=== PATIENT | male | born 1940 | race Caucasian/White ===

== ENCOUNTER 2020-12-18 07:15 | Inpatient (IN) ==
[2020-12-18] MEDS ORDERED: Ipratropium/Albuterol Neb 3 ML IH ONE (07:25)
[2020-12-18] MEDS ORDERED: Furosemide 40 MG/4 ML VIAL IVP ONE ×3 (07:25→23:00)
[2020-12-18] MEDS ORDERED: Ipratropium/Albuterol Neb 3 ML ONE (07:25)
[2020-12-18 08:44] LABS: Basophils % 0.3 %; Eosinophils # 0.1 K/mcL (0.0-0.6); Eosinophils % 1.9 %; Hematocrit 24.7 % (37.5-50.1); Hemoglobin 7.6 g/dL (12.9-16.9); Immature Granulocytes % 0.6 % (0-4); Lymphocytes # 1.1 K/mcL (0.6-4.6); Lymphocytes % 16.1 %; Mean Corpuscular HGB Conc 30.8 g/dL (31.6-35.5); Mean Corpuscular Hemoglobin 29.8 pg (28.0-33.3); Mean Corpuscular Volume 96.9 fL (83.0-100.0); Mean Platelet Volume 8.7 fL (9.4-12.4); Monocytes # 0.7 K/mcL (0.0-1.3); Monocytes % 9.7 %; Neutrophils # 4.9 K/mcL (1.6-8.9); Platelet Count 115 K/mcL (140-400); Red Blood Count 2.55 M/mcL (4.19-5.50); Segmented Neutrophils % 71.4 %; White Blood Count 6.9 K/mcL (4.3-11.1)
[2020-12-18 08:48] LABS: VBG HCO3 16 mEq/L (21-27); VBG PCO2 35 mmHg (41-51); VBG PH 7.26 pH Units (7.32-7.42); VBG PO2 54 mmHg (25-50)
[2020-12-18 09:35] LABS: Albumin 3.2 g/dL (3.5-5.7); Albumin/Globulin Ratio 1.2 (1.1-2.2); Bilirubin,Indirect 0.3 mg/dL (0.0-1.0); Bilirubin,Total 0.3 mg/dL (0.3-1.0); Globulin 2.7 g/dL (2.4-3.5); Magnesium 1.4 mg/dL (1.6-2.6); Potassium 5.4 mEq/L (3.5-5.1); Total Protein 5.9 g/dL (6.4-8.9); Troponin I 0.61 ng/mL (< 0.04)
[2020-12-18] MEDS ORDERED: Naloxone 0.4 MG/ML INJ IVP PRN (09:48)
[2020-12-18 10:17] LABS: Phosphorous 6.2 mg/dL (2.7-4.5)
[2020-12-18 10:47] LABS: Bacteria,Urine Few per hpf (None-Few); Bilirubin,Urine Negative (Negative); Blood,Urine Trace (Negative); Clarity,Urine Clear (Clear); Color,Urine Colorless (Yellow); Glucose,Urine (UA) 300 mg/dL (Normal); Ketones,Urine Negative (Negative); Leukocyte Esterase,Urine Negative (Negative); Nitrite,Urine Negative (Negative); PH,Urine 6.5 pH Units (5.0-8.0); Protein,Urine >=300 mg/dL (Neg-Trace); RBC,Urine 0-3 per hpf (0-3); Specific Gravity,Urine 1.014 (1.010-1.025); Squamous Epithelial Cell,Urine Few per hpf (None-Few); Urobilinogen,Urine Normal (Normal); WBC,Urine 0-3 per hpf (0-3)
[2020-12-18] MEDS ORDERED: *HR* Heparin 5,000 UNIT/ML VIAL IVP ONE (14:35)
[2020-12-18] MEDS ORDERED: *HR* Heparin 5,000 UNIT/ML VIAL IVP PRN ×2 (14:35)
[2020-12-18] MEDS ORDERED: Heparin 25,000UNIT/250ML 1/2NS 25,000 UNIT/250 ML IV.SOLN IVC SCH (14:45)
[2020-12-18] MEDS ORDERED: Perflutren Lipid Microsphere 1.3 ML in 0.9 % Sodium Chloride 8.7 ML IVP PRN (14:56)
[2020-12-18] MEDS ORDERED: D5% in Water 1,000 ML IVC PRN (16:29)
[2020-12-18] MEDS ORDERED: Dextrose Gel 15 GM/37.5 ML TUBE PO PRN ×2 (16:29)
[2020-12-18] MEDS ORDERED: *HR* Dextrose 50 % in Water (Vial) 50 ML VIAL IVP PRN (16:29)
[2020-12-18] MEDS: Albumin 25% 25gram/100mL 25 GM/100 ML IV.SOLN IVC SCH ×2 (16:46→20:53)
[2020-12-18] MEDS: carvediloL 6.25 MG TABLET PO SCH (17:11)
[2020-12-18] MEDS: Insulin LISPRO 300 UNITS/3 ML VIAL SUBQ SCH (17:12)
[2020-12-18 18:05] LABS: Hematocrit 23.3 % (37.5-50.1); Hemoglobin 7.3 g/dL (12.9-16.9)
[2020-12-18] MEDS: Gabapentin 100 MG CAPSULE PO SCH (20:36)
[2020-12-18] MEDS ORDERED: Insulin LISPRO 300 UNITS/3 ML VIAL SUBQ SCH (21:00)
[2020-12-19 00:51] LABS: Albumin 3.5 g/dL (3.5-5.7); Albumin/Globulin Ratio 1.5 (1.1-2.2); Bilirubin,Total 0.5 mg/dL (0.3-1.0); Globulin 2.3 g/dL (2.4-3.5); Potassium 4.7 mEq/L (3.5-5.1); Total Protein 5.8 g/dL (6.4-8.9)
[2020-12-19 00:52] LABS: INR 1.2; Prothrombin Time 14.1 Seconds (9.4-12.1)
[2020-12-19 01:02] LABS: Hematocrit 21.2 % (37.5-50.1); Hemoglobin 6.9 g/dL (12.9-16.9)
[2020-12-19] MEDS ORDERED: 0.9 % Sodium Chloride 250 ML IVC PRN (07:26)
[2020-12-19] MEDS ORDERED: 0.9 % Sodium Chloride 1,000 ML PRIME SCH (07:30)
[2020-12-19] MEDS ORDERED: Heparin 1,000 UNITS/500 mL 500 ML ONE ×2 (07:45→12:34)
[2020-12-19] MEDS ORDERED: 0.9 % Sodium Chloride 500 ML ONE (07:47)
[2020-12-19] MEDS ORDERED: amLODIPine 5 MG TABLET PO SCH (09:00)
[2020-12-19] MEDS ORDERED: Isosorbide MONOnitrate (24 HR) 60 MG TAB.ER.24H PO SCH (09:00)
[2020-12-19] MEDS: Insulin LISPRO 300 UNITS/3 ML VIAL SUBQ SCH ×5 (09:59→21:33)
[2020-12-19] MEDS: Magnesium Oxide 400 MG TABLET PO SCH (10:08)
[2020-12-19] MEDS: Isosorbide MONOnitrate (24 HR) 60 MG TAB.ER.24H PO SCH (10:08)
[2020-12-19] MEDS: Aspirin Enteric Coated 81 MG Tablet PO SCH (10:08)
[2020-12-19] MEDS: Furosemide 40 MG/4 ML VIAL IVP SCH (10:08)
[2020-12-19] MEDS: Multivit/Ca/Min/Fe/FA 1 TAB TABLET PO SCH (10:09)
[2020-12-19] MEDS: Gabapentin 100 MG CAPSULE PO SCH ×2 (10:10→21:35)
[2020-12-19] MEDS: carvediloL 6.25 MG TABLET PO SCH ×2 (10:10→17:15)
[2020-12-19 11:15] LABS: Hepatitis B Surface Antibody < 3.10 mIU/mL
[2020-12-19 11:26] LABS: Hepatitis B Surface Antigen Nonreactive (Nonreactive)
[2020-12-19] MEDS ORDERED: Lidocaine/EPI 1:100k 1% 50 ML VIAL ONE (12:34)
[2020-12-19] MEDS ORDERED: amLODIPine 5 MG TABLET PO ONE (12:34)
[2020-12-19] MEDS ORDERED: carvediloL 6.25 MG TABLET PO ONE (13:15)
[2020-12-19] MEDS ORDERED: *HR* Heparin 5,000 UNIT/ML VIAL ONE ×2 (13:17→13:27)
[2020-12-19] MEDS ORDERED: SODIUM CHLORIDE/NAHCO3/KCL/PEG 4,000 ML SOLN.RECON PO ONE (17:00)
[2020-12-19] MEDS ORDERED: ROSUVASTATIN CALCIUM 20 MG PO SCH (18:00)
[2020-12-20] MEDS ORDERED: Insulin LISPRO 300 UNITS/3 ML VIAL SUBQ SCH
[2020-12-20 01:12] LABS: Hematocrit 26.8 % (37.5-50.1); Hemoglobin 8.6 g/dL (12.9-16.9)
[2020-12-20 01:26] LABS: Calcium 7.9 mg/dL (8.6-10.3)
[2020-12-20] MEDS ORDERED: 0.9 % Sodium Chloride 250 ML IVC PRN (07:16)
[2020-12-20] MEDS: Multivit/Ca/Min/Fe/FA 1 TAB TABLET PO SCH (07:28)
[2020-12-20] MEDS: Isosorbide MONOnitrate (24 HR) 60 MG TAB.ER.24H PO SCH (07:29)
[2020-12-20] MEDS: Aspirin Enteric Coated 81 MG Tablet PO SCH (07:30)
[2020-12-20] MEDS: carvediloL 6.25 MG TABLET PO SCH ×2 (07:30→16:58)
[2020-12-20] MEDS: Magnesium Oxide 400 MG TABLET PO SCH (07:30)
[2020-12-20] MEDS: Furosemide 40 MG/4 ML VIAL IVP SCH (07:31)
[2020-12-20] MEDS: amLODIPine 5 MG TABLET PO SCH (07:31)
[2020-12-20] MEDS: Insulin LISPRO 300 UNITS/3 ML VIAL SUBQ SCH ×5 (07:50→23:58)
[2020-12-20] MEDS: hydrALAZINE 25 MG TABLET PO SCH ×3 (09:33→23:09)
[2020-12-20] MEDS ORDERED: *HR* Heparin 10,000 UNIT/10 ML VIAL IV PRN (10:42)
[2020-12-20] MEDS: Gabapentin 100 MG CAPSULE PO SCH (19:52)
[2020-12-21 01:59] LABS: Immature Granulocytes % 0.2 % (0-4); Red Cell Distribution Width 15.9 % (11.5-14.5)
[2020-12-21 02:01] LABS: Basophils % 0.2 %; Eosinophils # 0.2 K/mcL (0.0-0.6); Eosinophils % 3.8 %; Hemoglobin 8.6 g/dL (12.9-16.9); Immature Platelets 1.5 % (1.1-6.1); Lymphocytes # 1.3 K/mcL (0.6-4.6); Lymphocytes % 23.6 %; Mean Corpuscular HGB Conc 31.9 g/dL (31.6-35.5); Mean Corpuscular Hemoglobin 29.1 pg (28.0-33.3); Mean Corpuscular Volume 91.2 fL (83.0-100.0); Mean Platelet Volume 9.5 fL (9.4-12.4); Monocytes # 1.1 K/mcL (0.0-1.3); Monocytes % 20.3 %; Red Blood Count 2.96 M/mcL (4.19-5.50); Segmented Neutrophils % 51.9 %; White Blood Count 5.5 K/mcL (4.3-11.1)
[2020-12-21 02:09] LABS: Neutrophils # 2.9 K/mcL (1.6-8.9); Platelet Count 97 K/mcL (140-400)
[2020-12-21 02:19] LABS: Calcium 7.9 mg/dL (8.6-10.3)
[2020-12-21] MEDS: Insulin LISPRO 300 UNITS/3 ML VIAL SUBQ SCH ×5 (05:51→19:52)
[2020-12-21] MEDS ORDERED: 0.9 % Sodium Chloride 250 ML IVC PRN (06:49)
[2020-12-21] MEDS: Gabapentin 100 MG CAPSULE PO SCH ×2 (08:08→19:56)
[2020-12-21] MEDS: Multivit/Ca/Min/Fe/FA 1 TAB TABLET PO SCH (11:43)
[2020-12-21] MEDS: Aspirin Enteric Coated 81 MG Tablet PO SCH (11:43)
[2020-12-21] MEDS: Isosorbide MONOnitrate (24 HR) 60 MG TAB.ER.24H PO SCH (11:43)
[2020-12-21] MEDS: Magnesium Oxide 400 MG TABLET PO SCH (11:43)
[2020-12-21] MEDS: carvediloL 6.25 MG TABLET PO SCH ×2 (11:49→17:45)
[2020-12-21] MEDS: amLODIPine 5 MG TABLET PO SCH (11:50)
[2020-12-21] MEDS: hydrALAZINE 25 MG TABLET PO SCH ×2 (11:50→17:45)
[2020-12-21] MEDS: Furosemide 40 MG/4 ML VIAL IVP SCH (11:54)
[2020-12-21] MEDS ORDERED: Nitroglycerin 0.4 MG TAB.SUBL SL PRN (15:38)
[2020-12-21] MEDS ORDERED: Morphine Sulfate 2 MG/ML SYRINGE IVP ONE (15:39)
[2020-12-21] MEDS ORDERED: *HR* Heparin 5,000 UNIT/ML VIAL IVP ONE (15:39)
[2020-12-21] MEDS ORDERED: *HR* Heparin 5,000 UNIT/ML VIAL IVP PRN ×2 (15:39)
[2020-12-21] MEDS ORDERED: Insulin Human Regular 10 UNIT in 0.9 % Sodium Chloride 10 ML IV ONE (16:15)
[2020-12-21] MEDS: Heparin 25,000UNIT/250ML 1/2NS 25,000 UNIT/250 ML IV.SOLN IVC SCH (17:02)
[2020-12-21 17:28] LABS: Heparin anti-factor XA UFH < 0.04 IU/mL (0.30-0.70)
[2020-12-21 17:29] LABS: INR 1.2; Prothrombin Time 14.1 Seconds (9.4-12.1)
[2020-12-21] MEDS: Insulin DETEMIR 100 UNIT/ML X5UNITS SUBQ SCH (19:58)
[2020-12-22] MEDS: hydrALAZINE 25 MG TABLET PO SCH ×2 (05:57→18:00)
[2020-12-22] MEDS: Acetaminophen 325 MG TABLET PO PRN ×3 (06:20→23:15)
[2020-12-22] MEDS: Multivit/Ca/Min/Fe/FA 1 TAB TABLET PO SCH (07:48)
[2020-12-22] MEDS: Aspirin Enteric Coated 81 MG Tablet PO SCH (07:49)
[2020-12-22] MEDS: Magnesium Oxide 400 MG TABLET PO SCH (07:49)
[2020-12-22] MEDS: Isosorbide MONOnitrate (24 HR) 60 MG TAB.ER.24H PO SCH (07:49)
[2020-12-22] MEDS: amLODIPine 5 MG TABLET PO SCH (07:50)
[2020-12-22] MEDS: carvediloL 6.25 MG TABLET PO SCH ×2 (07:51→16:10)
[2020-12-22] MEDS: Furosemide 40 MG/4 ML VIAL IVP SCH (07:51)
[2020-12-22] MEDS: Insulin LISPRO 300 UNITS/3 ML VIAL SUBQ SCH ×4 (07:53→20:20)
[2020-12-22 08:42] LABS: Calcium 7.9 mg/dL (8.6-10.3); Potassium 4.1 mEq/L (3.5-5.1)
[2020-12-22 10:16] LABS: Basophils % 0.4 %; Eosinophils # 0.2 K/mcL (0.0-0.6); Eosinophils % 3.7 %; Hematocrit 29.7 % (37.5-50.1); Hemoglobin 9.4 g/dL (12.9-16.9); Immature Granulocytes % 0.4 % (0-4); Lymphocytes # 1.4 K/mcL (0.6-4.6); Lymphocytes % 23.9 %; Mean Corpuscular HGB Conc 31.6 g/dL (31.6-35.5); Mean Corpuscular Hemoglobin 29.3 pg (28.0-33.3); Mean Corpuscular Volume 92.5 fL (83.0-100.0); Mean Platelet Volume 9.6 fL (9.4-12.4); Monocytes # 0.9 K/mcL (0.0-1.3); Monocytes % 15.5 %; Neutrophils # 3.2 K/mcL (1.6-8.9); Platelet Count 102 K/mcL (140-400); Red Blood Count 3.21 M/mcL (4.19-5.50); Red Cell Distribution Width 15.4 % (11.5-14.5); Segmented Neutrophils % 56.1 %; White Blood Count 5.7 K/mcL (4.3-11.1)
[2020-12-22] MEDS ORDERED: Acetaminophen 325 MG TABLET PO SCH (12:00)
[2020-12-22] MEDS: Gabapentin 100 MG CAPSULE PO SCH (20:19)
[2020-12-22] MEDS: Insulin DETEMIR 100 UNIT/ML X5UNITS SUBQ SCH (20:22)
[2020-12-22] MEDS: Heparin 25,000UNIT/250ML 1/2NS 25,000 UNIT/250 ML IV.SOLN IVC SCH (20:26)
[2020-12-23 03:18] LABS: Hemoglobin 8.5 g/dL (12.9-16.9); Mean Corpuscular HGB Conc 31.5 g/dL (31.6-35.5); Mean Corpuscular Hemoglobin 28.4 pg (28.0-33.3); Mean Corpuscular Volume 90.3 fL (83.0-100.0); Mean Platelet Volume 9.2 fL (9.4-12.4); Platelet Count 102 K/mcL (140-400); Red Blood Count 2.99 M/mcL (4.19-5.50); Red Cell Distribution Width 14.9 % (11.5-14.5); White Blood Count 6.2 K/mcL (4.3-11.1)
[2020-12-23 03:37] LABS: Potassium 4.5 mEq/L (3.5-5.1)
[2020-12-23] MEDS: hydrALAZINE 25 MG TABLET PO SCH ×2 (05:33→18:04)
[2020-12-23] MEDS: Acetaminophen 325 MG TABLET PO PRN ×3 (06:29→22:03)
[2020-12-23] MEDS: Isosorbide MONOnitrate (24 HR) 60 MG TAB.ER.24H PO SCH (08:07)
[2020-12-23] MEDS: amLODIPine 5 MG TABLET PO SCH (08:07)
[2020-12-23] MEDS: Multivit/Ca/Min/Fe/FA 1 TAB TABLET PO SCH (08:07)
[2020-12-23] MEDS: Magnesium Oxide 400 MG TABLET PO SCH (08:07)
[2020-12-23] MEDS: carvediloL 6.25 MG TABLET PO SCH ×2 (08:08→18:03)
[2020-12-23] MEDS: Furosemide 40 MG/4 ML VIAL IVP SCH (08:08)
[2020-12-23] MEDS: Aspirin Enteric Coated 81 MG Tablet PO SCH (08:08)
[2020-12-23] MEDS: Insulin LISPRO 300 UNITS/3 ML VIAL SUBQ SCH ×4 (08:09→22:33)
[2020-12-23] MEDS: Heparin 25,000UNIT/250ML 1/2NS 25,000 UNIT/250 ML IV.SOLN IVC SCH (18:04)
[2020-12-23] MEDS: Gabapentin 100 MG CAPSULE PO SCH (22:02)
[2020-12-23] MEDS: Insulin DETEMIR 100 UNIT/ML X5UNITS SUBQ SCH (22:32)
[2020-12-24] MEDS: Heparin 25,000UNIT/250ML 1/2NS 25,000 UNIT/250 ML IV.SOLN IVC SCH (04:09)
[2020-12-24] MEDS: hydrALAZINE 25 MG TABLET PO SCH ×2 (05:51→18:18)
[2020-12-24] MEDS ORDERED: 0.9 % Sodium Chloride 250 ML IVC PRN (07:38)
[2020-12-24] MEDS ORDERED: *HR* Heparin 10,000 UNIT/10 ML VIAL IV PRN (07:38)
[2020-12-24 07:44] LABS: Hematocrit 29.9 % (37.5-50.1); Hemoglobin 9.2 g/dL (12.9-16.9); Mean Corpuscular HGB Conc 30.8 g/dL (31.6-35.5); Mean Corpuscular Hemoglobin 28.6 pg (28.0-33.3); Mean Corpuscular Volume 92.9 fL (83.0-100.0); Mean Platelet Volume 9.1 fL (9.4-12.4); Platelet Count 133 K/mcL (140-400); Red Blood Count 3.22 M/mcL (4.19-5.50); Red Cell Distribution Width 15.2 % (11.5-14.5); White Blood Count 5.6 K/mcL (4.3-11.1)
[2020-12-24] MEDS ORDERED: 0.9 % Sodium Chloride 1,000 ML PRIME SCH (07:45)
[2020-12-24] MEDS: Insulin LISPRO 300 UNITS/3 ML VIAL SUBQ SCH ×5 (07:53→23:01)
[2020-12-24] MEDS: Furosemide 40 MG/4 ML VIAL IVP SCH (07:53)
[2020-12-24] MEDS: Magnesium Oxide 400 MG TABLET PO SCH (07:54)
[2020-12-24] MEDS: Multivit/Ca/Min/Fe/FA 1 TAB TABLET PO SCH (07:54)
[2020-12-24] MEDS: Aspirin Enteric Coated 81 MG Tablet PO SCH (07:54)
[2020-12-24] MEDS: Isosorbide MONOnitrate (24 HR) 60 MG TAB.ER.24H PO SCH (07:54)
[2020-12-24] MEDS: Acetaminophen 325 MG TABLET PO PRN ×2 (07:56→19:37)
[2020-12-24] MEDS: carvediloL 6.25 MG TABLET PO SCH ×2 (07:56→17:38)
[2020-12-24] MEDS: amLODIPine 5 MG TABLET PO SCH (07:57)
[2020-12-24 08:12] LABS: Calcium 8.6 mg/dL (8.6-10.3); Potassium 4.8 mEq/L (3.5-5.1)
[2020-12-24] MEDS: Gabapentin 100 MG CAPSULE PO SCH (19:37)
[2020-12-24] MEDS: Insulin DETEMIR 100 UNIT/ML X5UNITS SUBQ SCH (23:00)
[2020-12-25] MEDS: hydrALAZINE 25 MG TABLET PO SCH ×2 (07:03→16:58)
[2020-12-25] MEDS: Acetaminophen 325 MG TABLET PO PRN (07:03)
[2020-12-25 07:51] LABS: Hematocrit 29.1 % (37.5-50.1); Hemoglobin 9.5 g/dL (12.9-16.9); Mean Corpuscular HGB Conc 32.6 g/dL (31.6-35.5); Mean Corpuscular Hemoglobin 29.8 pg (28.0-33.3); Mean Corpuscular Volume 91.2 fL (83.0-100.0); Mean Platelet Volume 9.1 fL (9.4-12.4); Platelet Count 144 K/mcL (140-400); Red Blood Count 3.19 M/mcL (4.19-5.50); Red Cell Distribution Width 15.3 % (11.5-14.5); White Blood Count 6.5 K/mcL (4.3-11.1)
[2020-12-25] MEDS: Isosorbide MONOnitrate (24 HR) 60 MG TAB.ER.24H PO SCH (07:57)
[2020-12-25] MEDS: Aspirin Enteric Coated 81 MG Tablet PO SCH (07:57)
[2020-12-25] MEDS: carvediloL 6.25 MG TABLET PO SCH ×2 (07:58→16:58)
[2020-12-25] MEDS: Multivit/Ca/Min/Fe/FA 1 TAB TABLET PO SCH (07:58)
[2020-12-25] MEDS: Magnesium Oxide 400 MG TABLET PO SCH (07:58)
[2020-12-25] MEDS: amLODIPine 5 MG TABLET PO SCH (07:59)
[2020-12-25] MEDS: Furosemide 40 MG/4 ML VIAL IVP SCH (08:00)
[2020-12-25 08:09] LABS: Calcium 8.8 mg/dL (8.6-10.3); Potassium 4.8 mEq/L (3.5-5.1)
[2020-12-25] MEDS: Insulin LISPRO 300 UNITS/3 ML VIAL SUBQ SCH ×4 (08:42→20:46)
[2020-12-25] MEDS ORDERED: *HR* Midazolam HCl 2 MG/2 ML VIAL IVP ONE (12:54)
[2020-12-25] MEDS ORDERED: *HR* FentaNYL (PF) 100 MCG/2 ML VIAL IVP ONE (12:54)
[2020-12-25] MEDS ORDERED: 0.9 % Sodium Chloride 500 ML ONE (13:17)
[2020-12-25] MEDS ORDERED: *HR* Heparin 5,000 UNIT/ML VIAL ONE (13:18)
[2020-12-25] MEDS ORDERED: Heparin 1,000 UNITS/500 mL 500 ML ONE (13:20)
[2020-12-25] MEDS ORDERED: Lidocaine/EPI 1:100k 1% 50 ML VIAL ONE (13:20)
[2020-12-25] MEDS ORDERED: CeFAZolin 2,000MG/50ML DUPLEX 2,000 MG/50 ML BAG IVPB ONE (13:32)
[2020-12-25] MEDS: Gabapentin 100 MG CAPSULE PO SCH (20:25)
[2020-12-25] MEDS: Insulin DETEMIR 100 UNIT/ML X5UNITS SUBQ SCH (20:48)
[2020-12-26 06:07] LABS: Hematocrit 29.3 % (37.5-50.1); Hemoglobin 9.1 g/dL (12.9-16.9); Mean Corpuscular HGB Conc 31.1 g/dL (31.6-35.5); Mean Corpuscular Hemoglobin 28.8 pg (28.0-33.3); Mean Corpuscular Volume 92.7 fL (83.0-100.0); Mean Platelet Volume 8.8 fL (9.4-12.4); Platelet Count 156 K/mcL (140-400); Red Blood Count 3.16 M/mcL (4.19-5.50); Red Cell Distribution Width 15.2 % (11.5-14.5); White Blood Count 6.5 K/mcL (4.3-11.1)
[2020-12-26 06:45] LABS: Calcium 8.5 mg/dL (8.6-10.3); Potassium 4.7 mEq/L (3.5-5.1)
[2020-12-26] MEDS: Insulin LISPRO 300 UNITS/3 ML VIAL SUBQ SCH ×4 (07:07→20:25)
[2020-12-26] MEDS ORDERED: *HR* Heparin 10,000 UNIT/10 ML VIAL IV PRN (07:13)
[2020-12-26] MEDS ORDERED: 0.9 % Sodium Chloride 250 ML IVC PRN (07:13)
[2020-12-26] MEDS: hydrALAZINE 25 MG TABLET PO SCH ×2 (07:18→18:39)
[2020-12-26] MEDS: carvediloL 6.25 MG TABLET PO SCH ×2 (07:19→18:40)
[2020-12-26] MEDS: amLODIPine 5 MG TABLET PO SCH (08:44)
[2020-12-26] MEDS: Furosemide 40 MG/4 ML VIAL IVP SCH (08:44)
[2020-12-26] MEDS: Multivit/Ca/Min/Fe/FA 1 TAB TABLET PO SCH (08:44)
[2020-12-26] MEDS: Aspirin Enteric Coated 81 MG Tablet PO SCH (08:44)
[2020-12-26] MEDS: Magnesium Oxide 400 MG TABLET PO SCH (08:44)
[2020-12-26] MEDS: Isosorbide MONOnitrate (24 HR) 60 MG TAB.ER.24H PO SCH (08:56)
[2020-12-26] MEDS: Acetaminophen 325 MG TABLET PO PRN ×2 (10:25→18:39)
[2020-12-26] MEDS ORDERED: *HR* Heparin 10,000 UNIT/10 ML VIAL ONE (12:36)
[2020-12-26] MEDS ORDERED: 0.9 % Sodium Chloride 1,000 ML ONE ×2 (12:36)
[2020-12-26] MEDS ORDERED: Nitroglycerin 1,000 MCG/5 ML VIAL IV ONE (12:36)
[2020-12-26] MEDS ORDERED: *HR* FentaNYL (PF) 100 MCG/2 ML VIAL ONE (13:22)
[2020-12-26] MEDS ORDERED: *HR* Midazolam HCl 2 MG/2 ML VIAL ONE (13:22)
[2020-12-26] MEDS ORDERED: Tirofiban 12.5 MG/250ML 12.5 MG/250 ML BAG ONE (13:46)
[2020-12-26] MEDS ORDERED: Tirofiban 12.5 MG/250ML 12.5 MG/250 ML BAG IVC SCH (14:30)
[2020-12-26] MEDS: Insulin DETEMIR 100 UNIT/ML X5UNITS SUBQ SCH (19:58)
[2020-12-26] MEDS ORDERED: Gabapentin 100 MG CAPSULE PO SCH (21:00)
[2020-12-27 05:31] LABS: Hematocrit 29.7 % (37.5-50.1); Hemoglobin 9.4 g/dL (12.9-16.9); Mean Corpuscular HGB Conc 31.6 g/dL (31.6-35.5); Mean Corpuscular Volume 91.7 fL (83.0-100.0); Platelet Count 179 K/mcL (140-400); Red Blood Count 3.24 M/mcL (4.19-5.50); Red Cell Distribution Width 15.1 % (11.5-14.5); White Blood Count 5.6 K/mcL (4.3-11.1)
[2020-12-27 05:40] LABS: Calcium 8.5 mg/dL (8.6-10.3); Potassium 4.5 mEq/L (3.5-5.1)
[2020-12-27] MEDS: hydrALAZINE 25 MG TABLET PO SCH (06:07)
[2020-12-27] MEDS: Insulin LISPRO 300 UNITS/3 ML VIAL SUBQ SCH ×2 (07:25→12:05)
[2020-12-27] MEDS: Isosorbide MONOnitrate (24 HR) 60 MG TAB.ER.24H PO SCH (07:45)
[2020-12-27] MEDS: Aspirin Enteric Coated 81 MG Tablet PO SCH (07:45)
[2020-12-27] MEDS: Multivit/Ca/Min/Fe/FA 1 TAB TABLET PO SCH (07:45)
[2020-12-27] MEDS: carvediloL 6.25 MG TABLET PO SCH (07:46)
[2020-12-27] MEDS: amLODIPine 5 MG TABLET PO SCH (07:46)
[2020-12-27] MEDS: Magnesium Oxide 400 MG TABLET PO SCH (07:47)
[2020-12-27] MEDS: Furosemide 40 MG/4 ML VIAL IVP SCH (07:48)
[2020-12-27 11:30] VITALS: BP 107/72; PULSE 69; TEMP 98; O2SAT 96
[2020-12-28] MEDS ORDERED: Gabapentin 100 MG CAPSULE PO SCH (21:00)
== END 2020-12-27 14:25 | disposition home health service (06) | DRG 673 ==
LOC: EMEROOARM 07:15 → 2NENU 10:39 → SUATTDRO 10:39 → 2NENU 11:14
PROVIDERS: ADMIT Internal Medicine; ATTEND Internal Medicine
PROC: IRPERMA (2020-12-19 12:00)

== ENCOUNTER 2021-06-15 08:32 | Observation (INO) ==
[2021-06-15 09:04] LABS: Immature Granulocytes % 0.5 % (0-4)
[2021-06-15 09:06] LABS: Basophils % 0.4 %; Eosinophils # 0.1 K/mcL (0.0-0.6); Eosinophils % 0.8 %; Hematocrit 36.2 % (37.5-50.1); Hemoglobin 11.4 g/dL (12.9-16.9); Immature Platelets 1.6 % (1.1-6.1); Lymphocytes # 1.6 K/mcL (0.6-4.6); Lymphocytes % 15.4 %; Mean Corpuscular HGB Conc 31.5 g/dL (31.6-35.5); Mean Corpuscular Hemoglobin 30.2 pg (28.0-33.3); Mean Platelet Volume 8.7 fL (9.4-12.4); Monocytes # 1.3 K/mcL (0.0-1.3); Monocytes % 11.9 %; Neutrophils # 7.5 K/mcL (1.6-8.9); Platelet Count 110 K/mcL (140-400); Red Blood Count 3.77 M/mcL (4.19-5.50); Red Cell Distribution Width 15.8 % (11.5-14.5); White Blood Count 10.6 K/mcL (4.3-11.1)
[2021-06-15 09:28] LABS: Calcium 8.4 mg/dL (8.6-10.3); Potassium 4.1 mEq/L (3.5-5.1); Troponin I 0.06 ng/mL (< 0.04)
[2021-06-15 10:17] LABS: INR 1.2; Prothrombin Time 13.2 Seconds (9.4-12.1)
[2021-06-15 10:19] LABS: Activated Partial Thrombo Time 43.3 Seconds (26.0-36.0)
[2021-06-15 10:36] LABS: Adenovirus Not Detected (Not Detect); Bordetella Pertussis Not Detected (Not Detect); Chlamydophila pneumoniae Not Detected (Not Detect); Coronavirus 229E Not Detected (Not Detect); Coronavirus HKU1 Not Detected (Not Detect); Coronavirus NL63 Not Detected (Not Detect); Coronavirus OC43 Not Detected (Not Detect); Human Metapneumovirus Not Detected (Not Detect); Human Rhinovirus/Enterovirus Not Detected (Not Detect); Influenza A Subtype 2009 H1 Not Detected (Not Detect); Influenza B Not Detected (Not Detect); Mycoplasma pneumoniae Not Detected (Not Detect); Parainfluenza Virus 1 Not Detected (Not Detect); Parainfluenza Virus 2 Not Detected (Not Detect); Parainfluenza Virus 3 Not Detected (Not Detect); Parainfluenza Virus 4 Not Detected (Not Detect); Respiratory Syncytial Virus Not Detected (Not Detect); SARS-CoV-2 Not Detected (Not Detect)
[2021-06-15] MEDS ORDERED: Furosemide 20 MG/2 ML VIAL IVP ONE (11:23)
[2021-06-15] MEDS ORDERED: Isovue-370 500 ML BOTTLE IVP ONE (11:41)
[2021-06-15 12:32] LABS: Bilirubin,Urine Negative (Negative); Blood,Urine Trace (Negative); Clarity,Urine Clear (Clear); Color,Urine Yellow (Yellow); Glucose,Urine (UA) 70 mg/dL (Normal); Ketones,Urine Negative (Negative); Leukocyte Esterase,Urine Negative (Negative); Nitrite,Urine Negative (Negative); Protein,Urine >=600 mg/dL (Neg-Trace); Specific Gravity,Urine 1.018 (1.010-1.025); Urobilinogen,Urine Normal (Normal); WBC,Urine 0-3 per hpf (0-3)
[2021-06-15] MEDS ORDERED: Naloxone 0.4 MG/ML INJ IVP PRN (13:20)
[2021-06-15] MEDS ORDERED: Acetaminophen 325 MG TABLET PO PRN (13:28)
[2021-06-15] MEDS ORDERED: Ondansetron 4 MG/2 ML VIAL IVP PRN (13:28)
[2021-06-15] MEDS ORDERED: *HR* Dextrose 50 % in Water (Syg) 50 ML SYRINGE IVP PRN (13:58)
[2021-06-15] MEDS ORDERED: Dextrose Gel 15 GM/37.5 ML TUBE PO PRN ×2 (13:58)
[2021-06-15] MEDS ORDERED: D5% in Water 1,000 ML IVC PRN (13:58)
[2021-06-15] MEDS: levoFLOXacin 500 MG/100 ML 500 MG/100 ML BAG IVPB SCH (15:18)
[2021-06-15] MEDS ORDERED: Nitroglycerin 0.4 MG TAB.SUBL SL PRN (15:34)
[2021-06-15] MEDS: amLODIPine 5 MG TABLET PO SCH (16:31)
[2021-06-15] MEDS: carvediloL 6.25 MG TABLET PO SCH (16:31)
[2021-06-15] MEDS: Insulin LISPRO 300 UNITS/3 ML VIAL SUBQ SCH ×2 (16:31→20:22)
[2021-06-15] MEDS: hydrALAZINE 25 MG TABLET PO SCH (16:37)
[2021-06-15] MEDS: Gabapentin 100 MG CAPSULE PO SCH (20:21)
[2021-06-15] MEDS: *HR* Heparin 5,000 UNIT/ML VIAL SQ SCH (20:22)
[2021-06-15] MEDS ORDERED: traZODone 50 MG TABLET PO PRN (22:28)
[2021-06-16] MEDS: *HR* Heparin 5,000 UNIT/ML VIAL SQ SCH ×3 (06:17→20:38)
[2021-06-16] MEDS: hydrALAZINE 25 MG TABLET PO SCH ×2 (06:17→16:39)
[2021-06-16 07:32] LABS: Immature Granulocytes % 0.3 % (0-4); Red Cell Distribution Width 15.9 % (11.5-14.5)
[2021-06-16 07:33] LABS: Calcium 7.9 mg/dL (8.6-10.3); Magnesium 1.8 mg/dL (1.6-2.6); Potassium 4.6 mEq/L (3.5-5.1)
[2021-06-16 07:34] LABS: Basophils % 0.4 %; Eosinophils # 0.1 K/mcL (0.0-0.6); Eosinophils % 0.9 %; Hematocrit 30.7 % (37.5-50.1); Hemoglobin 9.8 g/dL (12.9-16.9); Immature Platelets 1.5 % (1.1-6.1); Lymphocytes # 1.7 K/mcL (0.6-4.6); Mean Corpuscular HGB Conc 31.9 g/dL (31.6-35.5); Mean Corpuscular Hemoglobin 30.9 pg (28.0-33.3); Mean Corpuscular Volume 96.8 fL (83.0-100.0); Mean Platelet Volume 9.7 fL (9.4-12.4); Monocytes # 0.9 K/mcL (0.0-1.3); Monocytes % 12.5 %; Neutrophils # 4.8 K/mcL (1.6-8.9); Platelet Count 100 K/mcL (140-400); Red Blood Count 3.17 M/mcL (4.19-5.50); Segmented Neutrophils % 63.9 %; White Blood Count 7.5 K/mcL (4.3-11.1)
[2021-06-16] MEDS: Insulin LISPRO 300 UNITS/3 ML VIAL SUBQ SCH ×4 (07:48→20:35)
[2021-06-16] MEDS: carvediloL 6.25 MG TABLET PO SCH ×2 (07:49→16:38)
[2021-06-16] MEDS: Aspirin Enteric Coated 81 MG Tablet PO SCH (07:49)
[2021-06-16] MEDS: Isosorbide MONOnitrate (24 HR) 60 MG TAB.ER.24H PO SCH (07:49)
[2021-06-16] MEDS: amLODIPine 5 MG TABLET PO SCH (07:49)
[2021-06-16] MEDS: Gabapentin 100 MG CAPSULE PO SCH ×3 (07:49→20:38)
[2021-06-16] MEDS: levoFLOXacin 500 MG/100 ML 500 MG/100 ML BAG IVPB SCH (14:21)
[2021-06-16 15:32] LABS: Hepatitis B Surface Antibody 6.96 mIU/mL
[2021-06-16 17:39] LABS: Hepatitis B Surface Antigen Nonreactive (Nonreactive)
[2021-06-16] MEDS: Magnesium Oxide 400 MG TABLET PO SCH (20:38)
[2021-06-17 01:49] LABS: Hematocrit 29.1 % (37.5-50.1); Mean Corpuscular Volume 96.7 fL (83.0-100.0); Red Blood Count 3.01 M/mcL (4.19-5.50); Red Cell Distribution Width 15.6 % (11.5-14.5)
[2021-06-17 01:51] LABS: Hemoglobin 9.1 g/dL (12.9-16.9); Immature Platelets 1.9 % (1.1-6.1); Mean Corpuscular HGB Conc 31.3 g/dL (31.6-35.5); Mean Corpuscular Hemoglobin 30.2 pg (28.0-33.3); Mean Platelet Volume 9.5 fL (9.4-12.4); White Blood Count 6.6 K/mcL (4.3-11.1)
[2021-06-17 02:13] LABS: Troponin I 0.05 ng/mL (< 0.04)
[2021-06-17 02:15] LABS: Calcium 7.9 mg/dL (8.6-10.3); Potassium 5.1 mEq/L (3.5-5.1)
[2021-06-17] MEDS: hydrALAZINE 25 MG TABLET PO SCH (05:19)
[2021-06-17] MEDS: *HR* Heparin 5,000 UNIT/ML VIAL SQ SCH ×2 (06:08→12:49)
[2021-06-17 07:08] VITALS: PULSE 74; O2SAT 95
[2021-06-17] MEDS: amLODIPine 5 MG TABLET PO SCH (07:35)
[2021-06-17] MEDS: Magnesium Oxide 400 MG TABLET PO SCH (07:35)
[2021-06-17] MEDS: Aspirin Enteric Coated 81 MG Tablet PO SCH (07:35)
[2021-06-17] MEDS: carvediloL 6.25 MG TABLET PO SCH (07:36)
[2021-06-17] MEDS: Insulin LISPRO 300 UNITS/3 ML VIAL SUBQ SCH ×2 (07:36→11:33)
[2021-06-17] MEDS: Isosorbide MONOnitrate (24 HR) 60 MG TAB.ER.24H PO SCH (07:36)
[2021-06-17] MEDS: Gabapentin 100 MG CAPSULE PO SCH ×2 (07:36→14:59)
[2021-06-17] MEDS ORDERED: *HR* Heparin 10,000 UNIT/10 ML VIAL IV PRN (08:39)
[2021-06-17] MEDS ORDERED: 0.9 % Sodium Chloride 250 ML IVC PRN (08:39)
[2021-06-17] MEDS ORDERED: 0.9 % Sodium Chloride 1,000 ML PRIME SCH (08:45)
[2021-06-17 15:15] VITALS: TEMP 98.1
[2021-06-17 15:18] VITALS: BP 164/63
[2021-06-18] MEDS ORDERED: levoFLOXacin 500 MG/100 ML 500 MG/100 ML BAG IVPB SCH (15:00)
== END 2021-06-17 15:58 | disposition home or self-care (01) ==
LOC: 2ANU 08:32 → EMEROOARM 08:32 → 2ANU 14:55
PROVIDERS: ADMIT Pharmacist; ATTEND Pharmacist